=== PATIENT | male | born 1945 | race Caucasian/White ===

== ENCOUNTER 2019-06-14 19:07 | Inpatient (IN) | payer OTHER, MEDICAID ==
[~2019-06-14] VITALS: Ht 177.8 cm; Wt 73.0 kg
[2019-06-14 20:07] LABS: BASOPHIL % 0.2 % (0-2); PLATELET COUNT 259 x10^3mcL (130-400); RED CELL DISTRIBUTION WIDTH 16.4 % (11.5-14.5)
[2019-06-14 20:20] LABS: CALCIUM 8.5 mg/dL (8.5-10.1); CARBON DIOXIDE 28.7 mmol/L (21-32); CHLORIDE SERUM 95 mmol/L (98-107); CREATININE SERUM 1.5 mg/dL (0.7-1.3); GLUCOSE SERUM 228 mg/dL (74-106); POTASSIUM SERUM 3.8 mmol/L (3.5-5.1); SODIUM SERUM 132 mmol/L (136-145)
[2019-06-14 20:32] LABS: ALKALINE PHOSPHATASE 120 U/L (46-116); ALT/SGPT 25 U/L (16-63); AST/SGOT 29 U/L (15-37); CHOLESTEROL 141 mg/dL (<200); HDL CHOLESTEROL 41 mg/dL (40-60); LIPASE 61 IU/L (73-393); T4(THYROXINE) 6.9 ug/dL (4.7-13.3); TOTAL PROTEIN, SERUM 7.4 g/dL (6.4-8.2)
[2019-06-14 20:40] LABS: ALBUMIN 2.8 g/dL (3.4-5.0)
[2019-06-14 21:46] LABS: UA SPECIFIC GRAVITY 1.025 (1.005-1.035); microscopic required? YES; urine erythrocyte 1+ (NEGATIVE)
[2019-06-14 22:13] LABS: AMPHETAMINE QUAL UR POSITIVE (See below)
[2019-06-14] MEDS ORDERED: LOTENSIN40 MG PO (23:29)
[2019-06-14] MEDS ORDERED: METFORMIN500 M1 PO (23:29)
[2019-06-14] MEDS ORDERED: METOPROLOL SUC100 M2 PO (23:30)
[2019-06-14] MEDS ORDERED: CYMBALTA30 M1 PO (23:30)
[2019-06-14] MEDS ORDERED: BUPROPION HCL150 M1 PO (23:30)
[2019-06-14] MEDS ORDERED: LANTUS SOLOS100 U/M1 SQ (23:31)
[2019-06-15] VITALS (7 sets, daily range): BP systolic 134–154; BP diastolic 67–86
[2019-06-15 06:45] LABS: CALCIUM 8.2 mg/dL (8.5-10.1); CARBON DIOXIDE 20.9 mmol/L (21-32); CHLORIDE SERUM 100 mmol/L (98-107); CREATININE SERUM 1.2 mg/dL (0.7-1.3); GLUCOSE SERUM 317 mg/dL (74-106); POTASSIUM SERUM 4.1 mmol/L (3.5-5.1); SODIUM SERUM 136 mmol/L (136-145)
[2019-06-15 07:12] LABS: PLATELET COUNT 267 x10^3mcL (130-400)
[2019-06-15 07:50] LABS: BASOPHIL % 0 % (0-2); RED CELL DISTRIBUTION WIDTH 16.5 % (11.5-14.5)
[2019-06-16 04:30] VITALS: BP 164/90
[2019-06-16 07:10] LABS: PLATELET COUNT 289 x10^3mcL (130-400)
[2019-06-16 07:20] LABS: CALCIUM 8.9 mg/dL (8.5-10.1); CHLORIDE SERUM 92 mmol/L (98-107); CREATININE SERUM 1.1 mg/dL (0.7-1.3); GLUCOSE SERUM 390 mg/dL (74-106); POTASSIUM SERUM 4.1 mmol/L (3.5-5.1); SODIUM SERUM 126 mmol/L (136-145)
[2019-06-16 07:54] LABS: RED CELL DISTRIBUTION WIDTH 16.5 % (11.5-14.5)
[2019-06-16 08:56] VITALS: BP 170/93
[2019-06-16 10:54] LABS: BASOPHIL 0 % (0-2); METAMYELOCTE 1 % (0-2); MYELOCYTE 1 % (0-2); PLATELET MORPHOLOGY PLATELETS NORMAL; rbc morphology (normal/abnorm) ABNORMAL (NORMAL)
[2019-06-16 10:55] LABS: BAND NEUTROPHIL 34 % (0-10); MONOCYTE 4 % (0-7); SEGMENTED NEUTROPHILS 56 % (37-75)
[2019-06-16 12:19] VITALS: BP 168/91
[2019-06-16 16:47] VITALS: BP 184/96
[2019-06-16 16:51] VITALS: Ht 177.8 cm; Wt 73.0 kg
[2019-06-16 18:51] VITALS: BP 148/79
[2019-06-16 21:44] VITALS: BP 167/89
[2019-06-17 00:32] VITALS: BP 150/83
[2019-06-17 05:00] VITALS: BP 145/78
[2019-06-17 06:40] LABS: PLATELET COUNT 292 x10^3mcL (130-400)
[2019-06-17 07:01] LABS: CALCIUM 8.5 mg/dL (8.5-10.1); CARBON DIOXIDE 29.8 mmol/L (21-32); CHLORIDE SERUM 100 mmol/L (98-107); GLUCOSE SERUM 313 mg/dL (74-106); POTASSIUM SERUM 4.2 mmol/L (3.5-5.1); SODIUM SERUM 135 mmol/L (136-145)
[2019-06-17 08:38] VITALS: BP 174/103
[2019-06-17 12:36] VITALS: BP 186/113
[2019-06-17 14:05] LABS: BAND NEUTROPHIL 3 % (0-10); BASOPHIL 0 % (0-2); MONOCYTE 4 % (0-7); SEGMENTED NEUTROPHILS 92 % (37-75); rbc morphology (normal/abnorm) ABNORMAL (NORMAL)
[2019-06-17 14:06] LABS: PLATELET MORPHOLOGY PLATELETS INCREASED
[2019-06-17 16:38] VITALS: BP 173/107
[2019-06-17 21:05] VITALS: BP 141/87
[2019-06-18 05:25] VITALS: BP 156/95
[2019-06-18 06:03] LABS: PLATELET COUNT 332 x10^3mcL (130-400)
[2019-06-18 06:24] LABS: CALCIUM 8.7 mg/dL (8.5-10.1); CARBON DIOXIDE 31.5 mmol/L (21-32); CHLORIDE SERUM 100 mmol/L (98-107); CREATININE SERUM 0.9 mg/dL (0.7-1.3); GLUCOSE SERUM 250 mg/dL (74-106); POTASSIUM SERUM 4.2 mmol/L (3.5-5.1); SODIUM SERUM 136 mmol/L (136-145)
[2019-06-18 06:58] LABS: RED CELL DISTRIBUTION WIDTH 16.8 % (11.5-14.5)
[2019-06-18 08:05] VITALS: BP 171/102
[2019-06-18 09:50] LABS: BAND NEUTROPHIL 0 % (0-10); BASOPHIL 0 % (0-2); MONOCYTE 3 % (0-7); SEGMENTED NEUTROPHILS 95 % (37-75)
[2019-06-18 09:53] LABS: PLATELET MORPHOLOGY PLATELETS INCREASED; rbc morphology (normal/abnorm) ABNORMAL (NORMAL)
[2019-06-18 10:27] VITALS: BP 171/102
[2019-06-18 11:53] VITALS: BP 183/108
[2019-06-18 17:42] VITALS: BP 144/80
[2019-06-18 19:42] VITALS: BP 128/61
[2019-06-19 04:59] VITALS: BP 161/90
[2019-06-19 06:58] LABS: CALCIUM 9.4 mg/dL (8.5-10.1); CARBON DIOXIDE 34.5 mmol/L (21-32); CHLORIDE SERUM 98 mmol/L (98-107); CREATININE SERUM 0.9 mg/dL (0.7-1.3); GLUCOSE SERUM 227 mg/dL (74-106); POTASSIUM SERUM 4.6 mmol/L (3.5-5.1); SODIUM SERUM 135 mmol/L (136-145)
[2019-06-19 08:36] VITALS: BP 142/73
[2019-06-19 09:10] LABS: PLATELET COUNT 339 x10^3mcL (130-400)
[2019-06-19 09:27] LABS: RED CELL DISTRIBUTION WIDTH 16.4 % (11.5-14.5)
[2019-06-19 11:53] LABS: MONOCYTE 7 % (0-7); SEGMENTED NEUTROPHILS 81 % (37-75)
[2019-06-19 12:26] LABS: rbc morphology (normal/abnorm) ABNORMAL (NORMAL)
[2019-06-19 13:00] VITALS: BP 152/82
[2019-06-19 17:04] VITALS: BP 189/89
[2019-06-19 20:08] VITALS: BP 121/70
[2019-06-20 05:06] VITALS: BP 135/72
[2019-06-20 06:52] LABS: PLATELET COUNT 379 x10^3mcL (130-400)
[2019-06-20 07:09] LABS: CARBON DIOXIDE 32 mmol/L (21-32); CHLORIDE SERUM 95 mmol/L (98-107); GLUCOSE SERUM 323 mg/dL (74-106); POTASSIUM SERUM 5.4 mmol/L (3.5-5.1); SODIUM SERUM 133 mmol/L (136-145)
[2019-06-20 07:10] LABS: CALCIUM 8.7 mg/dL (8.5-10.1); CREATININE SERUM 1.2 mg/dL (0.7-1.3)
[2019-06-20 08:23] VITALS: BP 139/72
[2019-06-20 08:46] LABS: RED CELL DISTRIBUTION WIDTH 16.4 % (11.5-14.5)
[2019-06-20 08:49] LABS: BAND NEUTROPHIL 3 % (0-10); MONOCYTE 5 % (0-7); SEGMENTED NEUTROPHILS 84 % (37-75)
[2019-06-20 08:52] LABS: rbc morphology (normal/abnorm) ABNORMAL (NORMAL)
[2019-06-20 11:15] VITALS: BP 146/75
[2019-06-20 16:30] VITALS: BP 148/83
[2019-06-20 20:50] VITALS: BP 140/64
[2019-06-21 05:05] VITALS: BP 174/88
[2019-06-21 06:29] LABS: PLATELET COUNT 384 x10^3mcL (130-400)
[2019-06-21 06:50] LABS: RED CELL DISTRIBUTION WIDTH 16.1 % (11.5-14.5)
[2019-06-21 07:10] LABS: CALCIUM 8.9 mg/dL (8.5-10.1); CARBON DIOXIDE 29.7 mmol/L (21-32); CHLORIDE SERUM 96 mmol/L (98-107); GLUCOSE SERUM 281 mg/dL (74-106); POTASSIUM SERUM 4.5 mmol/L (3.5-5.1); SODIUM SERUM 134 mmol/L (136-145)
[2019-06-21 07:59] LABS: BAND NEUTROPHIL 0 % (0-10); BASOPHIL 0 % (0-2); MONOCYTE 10 % (0-7); PLATELET MORPHOLOGY PLATELETS INCREASED; SEGMENTED NEUTROPHILS 86 % (37-75)
[2019-06-21 08:00] LABS: rbc morphology (normal/abnorm) ABNORMAL (NORMAL)
[2019-06-21 08:58] VITALS: BP 137/65
[2019-06-21 12:32] VITALS: BP 127/67
[2019-06-21 12:40] VITALS: BP 127/67
[2019-06-21 17:55] VITALS: BP 147/73
[2019-06-21 20:50] VITALS: BP 133/67
[2019-06-22 05:58] VITALS: BP 166/81
[2019-06-22 08:25] LABS: CARBON DIOXIDE 28.5 mmol/L (21-32); CHLORIDE SERUM 96 mmol/L (98-107); CREATININE SERUM 1.1 mg/dL (0.7-1.3); GLUCOSE SERUM 354 mg/dL (74-106); POTASSIUM SERUM 4.7 mmol/L (3.5-5.1); SODIUM SERUM 132 mmol/L (136-145)
[2019-06-22 08:26] LABS: CALCIUM 8.8 mg/dL (8.5-10.1)
[2019-06-22 08:31] VITALS: BP 163/94
[2019-06-22 11:24] LABS: RED CELL DISTRIBUTION WIDTH 16.4 % (11.5-14.5)
[2019-06-22 11:25] LABS: PLATELET COUNT 376 x10^3mcL (130-400)
[2019-06-22 11:26] LABS: ATYPICAL LYMPH 0 %; BAND NEUTROPHIL 0 % (0-10); BASOPHIL 0 % (0-2); MONOCYTE 4 % (0-7); SEGMENTED NEUTROPHILS 90 % (37-75)
[2019-06-22 11:27] LABS: PLATELET MORPHOLOGY PLATELETS NORMAL; rbc morphology (normal/abnorm) ABNORMAL (NORMAL)
[2019-06-22 12:13] VITALS: BP 173/82
[2019-06-22 17:04] VITALS: BP 152/73
[2019-06-22 21:02] VITALS: BP 164/92
[2019-06-23 06:00] VITALS: BP 122/79
[2019-06-23 07:20] LABS: SODIUM SERUM 136 mmol/L (136-145)
[2019-06-23 07:21] LABS: CALCIUM 8.7 mg/dL (8.5-10.1); CARBON DIOXIDE 29.1 mmol/L (21-32); CHLORIDE SERUM 99 mmol/L (98-107); GLUCOSE SERUM 171 mg/dL (74-106); POTASSIUM SERUM 4.3 mmol/L (3.5-5.1)
[2019-06-23 07:57] LABS: PLATELET COUNT 407 x10^3mcL (130-400); RED CELL DISTRIBUTION WIDTH 16.1 % (11.5-14.5)
[2019-06-23 08:33] LABS: MONOCYTE 5 % (0-7); SEGMENTED NEUTROPHILS 90 % (37-75); rbc morphology (normal/abnorm) ABNORMAL (NORMAL)
[2019-06-23 09:12] VITALS: BP 168/87
[2019-06-23 17:31] VITALS: BP 146/94
[2019-06-23 20:58] VITALS: BP 157/87
[2019-06-24 06:06] VITALS: BP 166/94
[2019-06-24 07:11] LABS: CALCIUM 8.9 mg/dL (8.5-10.1); CARBON DIOXIDE 28.7 mmol/L (21-32); CHLORIDE SERUM 97 mmol/L (98-107); CREATININE SERUM 1.2 mg/dL (0.7-1.3); GLUCOSE SERUM 337 mg/dL (74-106); SODIUM SERUM 132 mmol/L (136-145)
[2019-06-24 08:10] LABS: PLATELET COUNT 404 x10^3mcL (130-400); RED CELL DISTRIBUTION WIDTH 16.3 % (11.5-14.5)
[2019-06-24 08:42] VITALS: BP 161/84
[2019-06-24 11:08] LABS: BAND NEUTROPHIL 1 % (0-10); BASOPHIL 0 % (0-2); MONOCYTE 2 % (0-7); PLATELET MORPHOLOGY PLATELETS INCREASED; SEGMENTED NEUTROPHILS 94 % (37-75); rbc morphology (normal/abnorm) ABNORMAL (NORMAL)
[2019-06-24 11:40] VITALS: BP 167/93
[2019-06-24 15:46] VITALS: BP 149/83
[2019-06-24 20:31] VITALS: BP 138/71
[2019-06-25 04:57] VITALS: BP 155/86
[2019-06-25 06:35] LABS: PLATELET COUNT 374 x10^3mcL (130-400)
[2019-06-25 06:49] LABS: CARBON DIOXIDE 30.6 mmol/L (21-32); CHLORIDE SERUM 97 mmol/L (98-107); CREATININE SERUM 1.1 mg/dL (0.7-1.3); GLUCOSE SERUM 206 mg/dL (74-106); POTASSIUM SERUM 4.6 mmol/L (3.5-5.1); SODIUM SERUM 134 mmol/L (136-145)
[2019-06-25 06:50] LABS: CALCIUM 8.6 mg/dL (8.5-10.1)
[2019-06-25 08:16] VITALS: BP 157/77
[2019-06-25 08:19] LABS: RED CELL DISTRIBUTION WIDTH 16.7 % (11.5-14.5)
[2019-06-25 09:00] LABS: BAND NEUTROPHIL 0 % (0-10); BASOPHIL 0 % (0-2); MONOCYTE 4 % (0-7); SEGMENTED NEUTROPHILS 94 % (37-75)
[2019-06-25 09:01] LABS: rbc morphology (normal/abnorm) ABNORMAL (NORMAL)
[2019-06-25 09:02] LABS: PLATELET MORPHOLOGY PLATELETS INCREASED
[2019-06-25 16:21] VITALS: BP 166/88
[2019-06-25 21:10] VITALS: BP 144/69
[2019-06-26 05:55] VITALS: BP 157/77
[2019-06-26 08:40] VITALS: BP 151/83
[2019-06-26 11:57] VITALS: BP 132/78
[2019-06-26 16:27] VITALS: BP 144/82
[2019-06-26 19:55] VITALS: BP 143/83
[2019-06-27 05:15] VITALS: BP 149/89
[2019-06-27 07:15] LABS: PLATELET COUNT 361 x10^3mcL (130-400)
[2019-06-27 07:32] LABS: RED CELL DISTRIBUTION WIDTH 16.7 % (11.5-14.5)
[2019-06-27 07:38] LABS: CARBON DIOXIDE 28.3 mmol/L (21-32); CHLORIDE SERUM 100 mmol/L (98-107); GLUCOSE SERUM 169 mg/dL (74-106); POTASSIUM SERUM 4.8 mmol/L (3.5-5.1); SODIUM SERUM 134 mmol/L (136-145)
[2019-06-27 07:39] LABS: CALCIUM 8.5 mg/dL (8.5-10.1)
[2019-06-27 08:01] VITALS: BP 150/82
[2019-06-27 12:06] VITALS: BP 127/79
[2019-06-27 12:39] LABS: BAND NEUTROPHIL 1 % (0-10); BASOPHIL 0 % (0-2); MONOCYTE 4 % (0-7); SEGMENTED NEUTROPHILS 92 % (37-75); rbc morphology (normal/abnorm) ABNORMAL (NORMAL)
[2019-06-27 12:41] LABS: PLATELET MORPHOLOGY PLATELETS NORMAL; ovalocyte/elliptocyte 1+
[2019-06-27 17:11] VITALS: BP 150/82
[2019-06-27 19:39] VITALS: BP 167/87
[2019-06-28 05:36] VITALS: BP 150/76
[2019-06-28 08:25] VITALS: BP 146/80
[2019-06-28 12:41] VITALS: BP 156/87
[2019-06-28] MEDS ORDERED: AMLODIPINE BESYL5 M2 PO (13:49)
[2019-06-28] MEDS ORDERED: PRE20 PO (13:50)
== END 2019-06-28 16:33 | disposition home health service (06) | DRG 853 ==
LOC: EDBD 19:07 → ED 19:07 → MU 22:47 → DU 22:47 → MU 06-20 10:29
PROVIDERS: Emergency Medicine; Podiatrist Foot & Ankle Surgery; ADMIT Internal Medicine
PROC: 0Y6Q0Z3 Detachment at Left 1st Toe, Low, Open Approach (ICD-10-PCS; principal; 2019-06-19 14:30)
DX: A41.59 Other Gram-negative sepsis (principal); J96.01 Acute respiratory failure with hypoxia; I50.43 Acute on chronic combined systolic (congestive) and diastolic (congestive) heart failure; J44.1 Chronic obstructive pulmonary disease with (acute) exacerbation; F15.20 Other stimulant dependence, uncomplicated; M86.672 Other chronic osteomyelitis, left ankle and foot; E11.42 Type 2 diabetes mellitus with diabetic polyneuropathy; E11.621 Type 2 diabetes mellitus with foot ulcer; L97.521 Non-pressure chronic ulcer of other part of left foot limited to breakdown of skin; I11.0 Hypertensive heart disease with heart failure; F17.210 Nicotine dependence, cigarettes, uncomplicated; Z68.25 Body mass index [BMI] 25.0-25.9, adult; Z79.84 Long term (current) use of oral hypoglycemic drugs; Z22.322 Carrier or suspected carrier of Methicillin resistant Staphylococcus aureus
CPT/HCPCS: 36600; 82962; 83880; 87804; 90715; 94150; 97110-GP; 97112-GP; 97116-GP; 97530-GP; G0378; J0295; J1815; J2405; J2543; J2704; J2920; J2930; J3010; J3370; J3490; J7030; J7040; J7050; J7120; J7613; J7620; J7644; Q0092